=== PATIENT | female | born 1990 | race American Indian/Alaskan Native ===

== ENCOUNTER 2018-09-30 10:55 | Emergency (ER) | payer SELFPAY | END 2018-09-30 11:08 | disposition left against medical advice (07) | LOC: ED 10:55 | DX: R21 Rash and other nonspecific skin eruption (principal); Z53.21 Procedure and treatment not carried out due to patient leaving prior to being seen by health care provider ==

== ENCOUNTER 2020-07-26 09:44 | Emergency (ER) | payer BC ==
[2020-07-26 10:06] VITALS: BP 121/86
[2020-07-26] MEDS ORDERED: PENICILLIN G BENZATHINE 600,000 UNIT/1 ML INJ IM ONE (11:00)
--- NOTE | 2020-07-26 11:00 | Emergency Department Report ---
ED ENT HPI - General Chief complaint: Sore Throat Stated complaint: THROAT/EAR NECK PAIN Time Seen by Provider: 07/26/20 10:56 Source: patient Mode of arrival: Ambulatory Limitations: No Limitations - History of Present Illness Initial comments: 30-year-old -[place] female presents to the emergency room for 3-day history of a sore throat and right ear pain. Patient denies any fever chills no nausea no vomiting no abdominal pain no chest pain or shortness of breath. Patient states that she was seen by her primary care provider yesterday had a throat swab and was discharged with no medication or instructions. Patient states she is taking Robitussin and melatonin and took 2 Advil last night. Patient currently has no past medical history takes no medications on a daily basis and has no known drug allergies. MD complaint: ear pain, difficulty swallowing Onset/Timin -: days(s) Location: R ear, throat Severity scale (0 -10): 8 Quality: burning, stabbing, sharp Consistency: constant Improves with: none Worsens with: swallowing, eating Associated Symptoms: pain with swallowing, sore throat. denies: fever, cough, gum swelling, toothache, discharge from ear, rhinorrhea, other - Related Data Previous Rx's Medication Instructions Recorded Last Taken Type Griseofulvin Ultramicrosize 250 mg PO BID #30 tablet 09/30/18 Unknown Rx [Farrah-Peg] Azithromycin [Zithromax] 250 mg PO QDAY #6 tablet 07/26/20 Unknown Rx Allergies Allergy/AdvReac Type Severity Reaction Status Date / Time No Known Allergies Allergy Verified 07/26/20 11:29 ED Dental HPI - General Chief complaint: Sore Throat Stated complaint: THROAT/EAR NECK PAIN Time Seen by Provider: 07/26/20 10:56 Source: patient Mode of arrival: Ambulatory Limitations: No Limitations - Related Data Previous Rx's Medication Instructions Recorded Last Taken Type Griseofulvin Ultramicrosize 250 mg PO BID #30 tablet 09/30/18 Unknown Rx [Farrah-Peg] Azithromycin [Zithromax] 250 mg PO QDAY #6 tablet 07/26/20 Unknown Rx Allergies Allergy/AdvReac Type Severity Reaction Status Date / Time No Known Allergies Allergy Verified 07/26/20 11:29 ED Review of Systems ROS: Stated complaint: THROAT/EAR NECK PAIN Other details as noted in HPI Comment: All other systems reviewed and negative ED Past Medical Hx - Past Medical History Previous Medical History?: No - Surgical History Past Surgical History?: No - Social History Smoking Status: Never Smoker Substance Use Type: Alcohol - Medications Home Medications: Home Medications Medication Instructions Recorded Confirmed Last Taken Type Griseofulvin Ultramicrosize 250 mg PO BID #30 tablet 09/30/18 Unknown Rx [Farrah-Peg] Azithromycin [Zithromax] 250 mg PO QDAY #6 tablet 07/26/20 Unknown Rx ED Physical Exam - General Limitations: No Limitations General appearance: alert, in no apparent distress - Head Head exam: Present: atraumatic, normocephalic - Eye Eye exam: Present: normal appearance - ENT ENT exam: Present: mucous membranes moist, normal external ear exam - Expanded ENT Exam Expanded Throat exam: Positive: normal inspection. Negative: tonsillar erythema, tonsillomegaly, tonsillar exudate - Respiratory Respiratory exam: Present: normal lung sounds bilaterally. Absent: respiratory distress - Cardiovascular Cardiovascular Exam: Present: regular rate, normal rhythm. Absent: systolic murmur, diastolic murmur, rubs, gallop - GI/Abdominal GI/Abdominal exam: Present: soft, normal bowel sounds ED Course Vital Signs 07/26/20 10:01 Temperature 97.9 F Pulse Rate 74 Respiratory 20 Rate Blood Pressure 121/86 O2 Sat by Pulse 100 Oximetry ED Medical Decision Making - Medical Decision Making 30-year-old -[place] female presents to the emergency room for 3-day history of a sore throat and right ear pain. Patient denies any fever chills no nausea no vomiting no abdominal pain no chest pain or shortness of breath. Patient states that she was seen by her primary care provider yesterday had a throat swab and was discharged with no medication or instructions. Patient states she is taking Robitussin and melatonin and took 2 Advil last night. Patient currently has no past medical history takes no medications on a daily basis and has no known drug allergies. Critical care attestation.: If time is entered above; I have spent that time in minutes in the direct care of this critically ill patient, excluding procedure time. ED Disposition Clinical Impression: Sore throat Disposition: - TO HOME OR SELFCARE Is pt being admited?: No Does the pt Need Aspirin: No Condition: Stable Instructions: Sore Throat, [id number] Additional Instructions: Please take Tylenol or ibuprofen as needed for pain. Gargle with warm salt water. Follow-up with your primary care provider. Please incorporate zinc 50mg, vitamin D3 2000iu and vitamin C 500mg to your diet. Prescriptions: Azithromycin [Zithromax] 250 mg PO QDAY #6 tablet Referrals: RENEE TRENT MD [Staff Physician] - 3-5 Days Forms: Work/School Release Form(ED)
== END 2020-07-26 12:23 | disposition home or self-care (01) ==
LOC: ED 09:44
DX: J02.9 Acute pharyngitis, unspecified (principal); H92.01 Otalgia, right ear; R13.10 Dysphagia, unspecified; Z79.2 Long term (current) use of antibiotics; Z79.899 Other long term (current) drug therapy
CPT/HCPCS: 99282; J0561